=== PATIENT | female | born 1985 | race Two or more races ===

== ENCOUNTER 2023-01-25 07:48 | Emergency (ER) | payer BC ==
[~2023-01-25] VITALS: Ht 157.5 cm; Wt 72.6 kg
[2023-01-25 08:00] VITALS: BP 132/70
--- NOTE | 2023-01-25 08:10 | NUR ---
PT AMBULATED TO BED 7, STEADY GATE
--- NOTE | 2023-01-25 08:13 | NUR ---
38YO F PRESENTS W/NON-RADIATING EPIGASTRIC PAIN X2 DAYS, DENIES N,V,D,C, CHANGE IN DIET STARTED OZEMPIC SHOTS FOR WEIGHT MANAGEMENT X 2MTHS.
[2023-01-25] MEDS ORDERED: ONDANSETRON 4 MG ODT PO ONE (08:25)
[2023-01-25] MEDS ORDERED: DICYCLOMINE HCL LIQUID 20 MG, ALUMINUM HYD/MAG/SIMETHICONE 30 ML, LIDOCAINE VISCOUS 2% ... PO ONE ×3 (08:30)
[2023-01-25] MEDS ORDERED: DICYCLOMINE HCL LIQUID 10 MG/5 ML UDC ONE (08:38)
[2023-01-25] MEDS ORDERED: ALUMINUM HYD/MAG/SIMETHICONE 30 ML UDC ONE (08:38)
[2023-01-25 09:20] LABS: BASOPHILS # (AUTO) 0.1 K/uL (0.00-0.22); BASOPHILS % (AUTO) 0.8 % (0.0-2.0); EOSINOPHILS # (AUTO) 0.2 K/uL (0-0.4); EOSINOPHILS % (AUTO) 2.1 % (0.0-4.0); HEMOGLOBIN 12.7 g/dL (12.0-16.0); LYMPHOCYTES # (AUTO) 3.7 K/uL (2.5-16.5); LYMPHOCYTES % (AUTO) 42.5 % (20.5-51.1); MEAN CORPUSCULAR HEMOGLOBIN 30 pg (27-31); MEAN CORPUSCULAR HGB CONC 34 g/dL (33-37); MEAN CORPUSCULAR VOLUME 89.6 fL (80-94); MONOCYTES # (AUTO) 0.8 K/uL (0.8-1.0); MONOCYTES % (AUTO) 8.6 % (1.7-9.3); PLATELET COUNT (AUTO) 304 K/uL (140-450); RED BLOOD CELL COUNT(AUTO) 4.23 MIL/uL (4.20-5.40); RED CELL DISTRIBUTION WIDTH 13.4 % (11.6-13.7); WHITE BLOOD COUNT (AUTO) 8.8 K/uL (4.8-10.8)
[2023-01-25 09:42] LABS: ALBUMIN 3.7 g/dL (3.4-5.0); ANION GAP 14.3 (8-16); ASPARTATE AMINOTRANSFERASE 28 U/L (15-37); CARBON DIOXIDE 25.7 mmol/L (21-32); CHLORIDE 103 mmol/L (98-107); CREATININE 0.7 mg/dL (0.6-1.3); GFR ARICAN-AMERICAN 121 mL/min (>90); GLUCOSE 99 mg/dL (74-106); LIPASE 65 U/L (73-393); SODIUM SERUM 139 mmol/L (136-145); TOTAL BILIRUBIN 0.9 mg/dL (0.0-1.0); UREA NITROGEN, BLOOD 7 mg/dL (7-18)
[2023-01-25] MEDS ORDERED: KETOROLAC 30 MG/ML VIAL IM ONE (10:10)
[2023-01-25] MEDS ORDERED: SUCRALFATE 1 GM TAB PO SCH (10:10)
[2023-01-25] MEDS ORDERED: FAMOTIDINE 20 MG TAB PO ONE (10:10)
[2023-01-25] MEDS ORDERED: FAMO-92 PO (11:10)
[2023-01-25] MEDS ORDERED: MAG355OR2 PO (11:10)
[2023-01-25] MEDS ORDERED: SUCR1TAB35 PO (11:10)
[2023-01-25 11:31] VITALS: BP 128/98
--- NOTE | 2023-01-25 11:31 | NUR ---
Patient discharged with v/s stable. Written and verbal after care instructions given and explained. Patient alert, oriented and verbalized understanding of instructions. Ambulatory with steady gait. All questions addressed prior to discharge. ID band removed. Patient advised to follow up with PMD. Rx of PEPCID,MAG HYDROX,SUCRALFATE given. Patient educated on indication of medication including possible reaction and side effects. Opportunity to ask questions provided and answered.
--- NOTE | 2023-01-25 11:32 | NUR ---
The patient's care was reviewed and supervised by [facility], RN.
== END 2023-01-25 11:31 | disposition home or self-care (01) ==
LOC: MED 07:48
DX: K29.70 Gastritis, unspecified, without bleeding (principal); R03.0 Elevated blood-pressure reading, without diagnosis of hypertension; Z79.899 Other long term (current) drug therapy; Z90.49 Acquired absence of other specified parts of digestive tract
CPT/HCPCS: 36415; 71045; 80053; 81025; 83690; 84484; 85025; 96372; 99284; J1885; Q0162